=== PATIENT | female | born 1995 | race Caucasian/White ===

== ENCOUNTER 2016-12-04 22:11 | Emergency (ER) | payer BC ==
[~2016-12-04] VITALS: Ht 162.6 cm; Wt 74.1 kg
[2016-12-04 22:12] VITALS: TEMP 36.8; Ht 162.6 cm; Wt 74.1 kg
[2016-12-04] MEDS ORDERED: SODIUM CHLORIDE 0.9% 1000ML 1,000 ML IV ONE (23:15)
[2016-12-04 23:17] VITALS: O2SAT 97
[2016-12-04 23:26] LABS: BASO % 0.5 %; BASO ABS # 0.03 K/uL (0-0.2); COMPLETE YES; EOS % 1.6 %; IG% 0.2 %; LYMPH % 29.6 %; LYMPH ABS # 1.85 K/uL (1.2-3.4); MEAN CELL VOLUME 93.1 fL (80-100); MEAN CORPUSCULAR HEMOGLOBIN 32.9 pg (25-34); MEAN CORPUSCULAR HGB CONC 35.4 g/dl (32-36); MEAN PLATELET VOLUME 9.1 fL (7.4-10.4); MONO % 6.4 %; NEUT % 61.7 %; PLATELET COUNT 210 K/uL (130-400); RED BLOOD COUNT 4.19 M/uL (4.2-5.4); WHITE BLOOD COUNT 6.24 K/uL (4.8-10.8)
[2016-12-04 23:40] LABS: POINT OF CARE TROPONIN I < 0.030 ng/ml (0-0.045)
[2016-12-04 23:43] LABS: URINE APPEARANCE CLOUDY (CLEAR); URINE BILIRUBIN NEG (NEG); URINE COLOR YELLOW; URINE EPITHELIAL CELL AUTO >30 /lpf (0-5); URINE NITRITE NEG (NEG); URINE PH 6.5 (4.5-7.5); UROBILINOGEN NEG (NEG); ZZUR CULT IF INDIC CLEAN CATCH YES
[2016-12-04 23:50] LABS: MANUAL MICROSCOPIC REQUIRED? NO; REVIEW REQ? NO
[2016-12-04] MEDS ORDERED: PRENTAB26 PO (23:54)
[2016-12-04] MEDS ORDERED: DULO-24 PO (23:54)
[2016-12-04] MEDS ORDERED: CETI10TA84 PO (23:56)
[2016-12-04] MEDS ORDERED: BIOT10TA2 PO (23:56)
[2016-12-04] MEDS ORDERED: ALPR0.25 PO (23:58)
[2016-12-05 00:05] LABS: BUN/CREATININE RATIO 10.8 (10-20); CALCIUM 8.7 mg/dl (8.5-10.1); CREATININE 1.3 mg/dl (0.60-1.20)
[2016-12-05 00:06] LABS: BENZODIAZEPINE, URINE NEG (NEG); COCAINE,URINE NEG (NEG); PHENCYCLIDINE, URINE NEG (NEG)
[2016-12-05 00:09] LABS: POTASSIUM 3.6 mmol/L (3.5-5.1)
[2016-12-05 00:14] LABS: MAGNESIUM 1.9 mg/dl (1.8-2.4)
[2016-12-05 00:17] LABS: ALB/GLOB RATIO 1.2 (0.9-2); THYROID STIMULATING HORMONE 6.22 uIu/ml (0.300-4.500)
[2016-12-05 00:20] LABS: LYME DISEASE AB IGG NEG (NEG); LYME DISEASE AB IGM NEG (NEG)
[2016-12-05 02:10] VITALS: BP 104/59; PULSE 88; O2SAT 97
--- NOTE | 2016-12-05 03:22 | EMERGENCY ROOM VISIT NOTE ---
History First contact with patient: 23:07 Chief Complaint: CHEST PAIN Stated Complaint: CHEST PAIN,PALPATATIONS,SOB History of Present Illness The patient is a 21 year old female who presents to the Emergency Room with complaints of palpitations and chest pain that began tonight. The patient states that she was watching [place] of [place] with a friend, when she began having her symptoms. The patient states that she has had symptoms like this of different severities over the past 2-3 weeks. 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 She does follow with a link cutter for her symptoms, and states that she has had a normal outpatient stress test and Holter monitor this week. She states that her symptoms have been increasing in nature and frequency. She has been provided Xanax which she did take prior to arrival. This did not improve her symptoms. She isolates her pain primarily over the left side chest wall. There is no radiation of symptoms. She rates her discomfort a 7/10. She is unsure if she may be . Review of Systems More than 10 systems were reviewed and otherwise negative with the exception of history of present illness. Past Medical/Surgical History No chronic medical disease Family History No pertinent family history Social History Smoking Status: Never Smoker Housing Status: lives with family Current/Historical Medications Scheduled Biotin (Biotin), 50 MG PO DAILY Cetirizine (Zyrtec), 10 MG PO DAILY Duloxetine HCl (Cymbalta), 80 MG PO DAILY Multivit/Min/Iron/Fol Ac/Pren ( Vitamin), 1 TAB PO DAILY Scheduled PRN Alprazolam (Xanax), 0.25-0.52 MG PO TID PRN for Anxiety Allergies Coded Allergies: Sulfamethoxazole w/Trimethoprim (Verified Allergy, Intermediate, PALPITATIONS, 12/05/16) Amoxicillin (Verified Allergy, Mild, HIVES, 12/05/16) Ciprofloxacin (Verified Allergy, Mild, HIVES, 12/05/16) Citalopram (Verified Allergy, Mild, MOOD SWINGS, 12/05/16) Clavulanic Acid (Verified Allergy, Mild, HIVES, 12/05/16) Latex (Verified Allergy, Mild, HIVES, 12/05/16) Uncoded Allergies: MUCINEX (Allergy, Intermediate, PALPITATIONS, 12/05/16) CONTROL PATCH (Allergy, Mild, SKIN DISCOLORATION, 12/05/16) NUVA RING (Allergy, Mild, SWELLING, 12/05/16) Physical Exam Vital Signs Date Time Temp Pulse Resp B/P (MAP) Pulse Ox O2 Delivery O2 Flow Rate FiO2 12/05/16 02:10 88 16 104/59 97 12/05/16 01:28 84 16 114/64 98 Room Air 12/05/16 00:12 80 16 105/60 98 Room Air 12/04/16 23:17 97 Room Air 12/04/16 22:19 97 Room Air 12/04/16 22:12 36.8 96 18 139/96 97 Room Air Pain Rating (0-10): 0 Physical Exam VITALS: Vitals are noted on the nurse's note and reviewed by myself. Vital signs stable. GENERAL: Well-developed, well-nourished, white female, who is in no acute distress and resting comfortably. Patient is cooperative with the examination. HEAD: Normocephalic atraumatic. EARS: External ear normal. External auditory canals clear, tympanic membranes pearly poole without erythema or effusion bilaterally. EYES: Pupils equal round and reactive to light and accommodation. Conjunctivae without injection, sclerae without icterus. Extraocular movements intact. NOSE: Patent, turbinates without inflammation or discharge. MOUTH: Mucous membranes moist. Tonsils are not enlarged. Pharynx without erythema, blood, or exudate. Uvula midline. Airway patent. NECK: Supple without nuchal rigidity. No lymphadenopathy. No thyromegaly. Cervical spine is nontender. HEART: Regular rate and rhythm without murmurs gallops or rubs. LUNGS: Clear to auscultation bilaterally without wheezes, rales or rhonchi. No retractions or accessory muscle use. ABDOMEN: Positive normal bowel sounds x 4. Soft, nontender, without masses or organomegaly. No guarding or rebound tenderness. MUSCULOSKELETAL: No muscle atrophy, erythema, or edema noted. Full range of motion without joint tenderness in all extremities. Medical Decision & Procedures Laboratory Results 12/04/16 23:05 Red Blood Count 4.19, Mean Corpuscular Volume 93.1, Mean Corpuscular Hemoglobin 32.9, Mean Corpuscular Hemoglobin Concent 35.4, Mean Platelet Volume 9.1, Neutrophils (%) (Auto) 61.7, Lymphocytes (%) (Auto) 29.6, Monocytes (%) (Auto) 6.4, Eosinophils (%) (Auto) 1.6, Basophils (%) (Auto) 0.5, Neutrophils # (Auto) 3.85, Lymphocytes # (Auto) 1.85, Monocytes # (Auto) 0.40, Eosinophils # (Auto) 0.10, Basophils # (Auto) 0.03 12/04/16 23:05 Test 12/04/16 23:05 12/04/16 23:20 12/04/16 23:25 White Blood Count 6.24 K/uL (4.8-10.8) Red Blood Count 4.19 M/uL (4.2-5.4) Hemoglobin 13.8 g/dL (12.0-16.0) Hematocrit 39.0 % (37-47) Mean Corpuscular Volume 93.1 fL (80-100) Mean Corpuscular Hemoglobin 32.9 pg (25-34) Mean Corpuscular Hemoglobin Concent 35.4 g/dl (32-36) Platelet Count 210 K/uL (130-400) Mean Platelet Volume 9.1 fL (7.4-10.4) Neutrophils (%) (Auto) 61.7 % Lymphocytes (%) (Auto) 29.6 % Monocytes (%) (Auto) 6.4 % Eosinophils (%) (Auto) 1.6 % Basophils (%) (Auto) 0.5 % Neutrophils # (Auto) 3.85 K/uL (1.4-6.5) Lymphocytes # (Auto) 1.85 K/uL (1.2-3.4) Monocytes # (Auto) 0.40 K/uL (0.11-0.59) Eosinophils # (Auto) 0.10 K/uL (0-0.5) Basophils # (Auto) 0.03 K/uL (0-0.2) RDW Standard Deviation 40.1 fL (36.4-46.3) RDW Coefficient of Variation 11.8 % (11.5-14.5) Immature Granulocyte % (Auto) 0.2 % Immature Granulocyte # (Auto) 0.01 K/uL (0.00-0.02) Anion Gap 8.0 mmol/L (3-11) Est Creatinine Clear Calc Drug Dose 66.4 ml/min Estimated GFR () 67.0 Estimated GFR (Non- 57.8 BUN/Creatinine Ratio 10.8 (10-20) Calcium Level 8.7 mg/dl (8.5-10.1) Magnesium Level 1.9 mg/dl (1.8-2.4) Total Bilirubin 0.3 mg/dl (0.2-1) Aspartate Amino Transf (AST/SGOT) 14 U/L (15-37) Alanine Aminotransferase (ALT/SGPT) 26 U/L (12-78) Alkaline Phosphatase 73 U/L (45-117) Total Protein 7.7 gm/dl (6.4-8.2) Albumin 4.2 gm/dl (3.4-5.0) Globulin 3.5 gm/dl (2.5-4.0) Albumin/Globulin Ratio 1.2 (0.9-2) Lipase 212 U/L (73-393) Thyroid Stimulating Hormone (TSH) 6.220 uIu/ml (0.300-4.500) Free Thyroxine 0.98 ng/dl (0.80-1.60) Lyme Disease IgG Antibody NEG (NEG) Lyme Disease IgM Antibody NEG (NEG) Bedside D-Dimer 147 ng/mlFEU (0-450) Bedside Troponin I < 0.030 ng/ml (0-0.045) Urine Color YELLOW Urine Appearance CLOUDY (CLEAR) Urine pH 6.5 (4.5-7.5) Urine Specific Slemp 1.020 (1.000-1.030) Urine Protein NEG (NEG) Urine Glucose (UA) NEG (NEG) Urine Ketones TRACE (NEG) Urine Occult Blood NEG (NEG) Urine Nitrite NEG (NEG) Urine Bilirubin NEG (NEG) Urine Urobilinogen NEG (NEG) Urine Leukocyte Esterase NEG (NEG) Urine WBC (Auto) 1-5 /hpf (0-5) Urine RBC (Auto) 0-4 /hpf (0-4) Urine Hyaline Casts (Auto) 1-5 /lpf (0-5) Urine Epithelial Cells (Auto) >30 /lpf (0-5) Urine Bacteria (Auto) 2+ (NEG) Urine Opiates Screen NEG (NEG) Urine Methadone, Qualitative NEG (NEG) Urine Barbiturates NEG (NEG) Urine Phencyclidine (PCP) Level NEG (NEG) Ur Amphetamine/Methamphetamine NEG (NEG) MDMA (Ecstasy) Screen NEG (NEG) Urine Benzodiazepines Screen NEG (NEG) Urine Cocaine Metabolite NEG (NEG) Urine Marijuana (THC) NEG (NEG) Medications Administered Medications (Trade) Dose Ordered Sig/Sofi Route Start Time Stop Time Status Last Admin Dose Admin Sodium Chloride 1,000 ml @ 999 mls/hr Q1H1M ONCE IV 12/04/16 23:15 12/05/16 00:15 DC 12/04/16 23:45 999 MLS/HR ED Course Physical exam and history were performed. Nursing notes and EMR were reviewed. Patient appears to have chest pain symptoms and palpitations for the past few hours. Evidently the patient has had an extensive outpatient workup without findings through her link cutter. IV access was established and labs were obtained. The patient was hydrated with normal saline. EKG was performed and was normal sinus rhythm without acute ST elevation or ectopy. 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 The patient's blood work is as above and was reviewed. She does not have a significantly elevated white blood cell count, gross anemia, bandemia, or significant electrolyte imbalance. Lipase and transaminases are nondiagnostic. Troponin and d-dimer are both negative. Urine is without evidence of or infection. Her TSH is slightly elevated, however her T4 is normal. Patient was monitored for greater than 4 hours on the monitor and storage bin tender did not have dysrhythmic episode. Overall the patient appears stable for discharge home. She does not appear to have an acute cardiopulmonary finding as the cause of her symptoms. The patient appears to have extensive outpatient resources, and should continue to follow with cardiology and her primary care physician. The patient's symptoms could be related to stress or anxiety, and I did have this discussion with the patient. She was thoroughly invited back to the ER with any new, worsening, or concerning symptoms. She voiced understanding of this plan and rated her discomfort a 2/10 at the time of departure. The chart was completed utilizing [employer] Voice Recognition Software. Grammatical errors, random word insertions, pronoun errors, and incomplete sentences are an occasional consequence of this system due to software limitations, ambient noise, and hardware issues. Any formal questions or concerns about the content, text, or information contained within the body of this dictation should be directly addressed to the provider for clarification. . Medical Decision Differential diagnosis includes, but is not limited to: Myocardial infarction, dysrhythmia, pericarditis, pneumothorax, aortic aneurysm/dissection, DVT/PE, anxiety, GERD, PUD, electrolyte imbalance, thyroid disorder, pneumonia, bronchitis, pancreatitis, and others Impression Primary Impression: Non-cardiac chest pain Departure Information Dispostion Home / Self-Care Condition GOOD Referrals No Doctor, Assigned (PCP) Forms HOME CARE DOCUMENTATION FORM, IMPORTANT VISIT INFORMATION Patient Instructions My [facility] Additional Instructions You were seen and evaluated today on an emergency basis only. This is not a substitute for, or an effort to provide, complete comprehensive medical care. It is not possible to recognize and treat all injuries or illnesses in a single emergency department visit. For this reason it is recommended that you followup with your primary care physician and link cutter this week for ongoing care and evaluation. Drink plenty of fluids and remain well hydrated. You are welcome to return to the emergency department anytime with new, worsening, or concerning symptoms.
--- NOTE | 2016-12-05 07:15 | DIAGNOSTIC IMAGING REPORT ---
CHEST ONE VIEW PORTABLE CLINICAL HISTORY: Palpitations/sob COMPARISON STUDY: No previous studies for comparison. FINDINGS: The cardiac and mediastinal contours are normal. There is no evidence of focal pulmonary consolidation. There is no evidence of failure. No pleural effusions are visualized.[ IMPRESSION: No active disease in the chest. Electronically signed by: Mike Beckford M.D. 12/05/2016 7:14 AM Dictated Date/Time: 12/05/2016 7:14 AM
== END 2016-12-05 02:09 | disposition home or self-care (01) ==
LOC: EDUNIT# 22:11 → C.EDB 22:13 → C.EDA 12-05 02:09
DX: R07.9 Chest pain, unspecified (principal); Z79.899 Other long term (current) drug therapy; Z88.1 Allergy status to other antibiotic agents; Z88.2 Allergy status to sulfonamides; Z88.8 Allergy status to other drugs, medicaments and biological substances; Z91.040 Latex allergy status

== ENCOUNTER 2017-02-25 22:10 | Emergency (ER) | payer OTHER, BC ==
[~2017-02-25] VITALS: Ht 162.6 cm; Wt 75.5 kg
[~2017-02-25 22:10] MED LIST: ALPR0.25 PO; BIOT10TA2 PO; CETI10TA84 PO; DULO-24 PO; PRENTAB26 PO
[2017-02-25 22:19] VITALS: BP 116/82; PULSE 102; TEMP 36.8; O2SAT 97; Ht 162.6 cm; Wt 75.5 kg
--- NOTE | 2017-02-25 22:36 | EMERGENCY ROOM VISIT NOTE ---
ED Visit Note First contact with patient: 22:23 CHIEF COMPLAINT: Body Fluid exposure HPI: This 22 yo presents to the Emergency Department for evaluation of a body fluid exposure when she accidentally got blood in her mouth from changing a wound Hemovac. 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 The wound has already been cleansed. Bleeding is controlled. They deny numbness, tingling, or loss of motion. Source patient is known. History of the source patient is not known at this time. The patient works at [employer]. They have had the hepatitis B. vaccination, and titers are current. They believe their tetanus is up-to-date. Pain is 0/10. ALLERGIES: Amoxicillin, reviewed MEDICATIONS: Synthroid, reviewed PMH: Thyroid, anxiety, depression SOCIAL HISTORY: No drug use Physical Exam: VITALS: Nursing notes reviewed and vitals are stable. GENERAL: Pleasant female, in no acute distress, nondiaphoretic, well-developed well-nourished. SKIN: Capillary reflex less than 2 seconds. HEENT: Normocephalic. PERRLA. EOMI. Nares patent. Mucous membranes moist. Neck is supple without nuchal rigidity. HEART: Regular rate and rhythm without murmurs gallops or rubs. LUNGS: Clear to auscultation bilaterally without wheezes, rales or rhonchi. No retractions or accessory muscle use. MUSCULOSKELETAL: No gross musculoskeletal defects. NEURO: Patient was alert and oriented to person place and time. Normal sensation to light and sharp touch. No focal neurological deficits. ED COURSE: I examined the patient. Option of HIV, hepatitis C, and hepatitis B testing was discussed with the patient. The risks, benefits, purpose, and limitations of the tests were explained to the patient and all of their questions were answered. They elected to proceed. I did perform pretest counseling and the appropriate consent forms were signed. Patient was given information on prevention of exposure and transmission as well as hospital confidentiality. Blood exposure handout was provided. The patient's blood was drawn. Risks and benefits of HIV prophylaxis were discussed with the patient. The patient elected to not to take HIV prophylaxis at this time. They will follow-up with employee health. Wound care instructions were provided. The patient was discharged in stable condition. My charge nurse Joe, was notified and will contact the attending physician of the source patient for HIV baseline testing. Impression: Body fluid exposure Plan: Follow up with employee health for further evaluation, treatment, and test results. Current/Historical Medications Scheduled Biotin (Biotin), 50 MG PO DAILY Cetirizine (Zyrtec), 10 MG PO DAILY Duloxetine HCl (Cymbalta), 80 MG PO DAILY Multivit/Min/Iron/Fol Ac/Pren ( Vitamin), 1 TAB PO DAILY Scheduled PRN Alprazolam (Xanax), 0.25-0.52 MG PO TID PRN for Anxiety Allergies Coded Allergies: Sulfamethoxazole w/Trimethoprim (Verified Allergy, Intermediate, PALPITATIONS, 12/05/16) Amoxicillin (Verified Allergy, Mild, HIVES, 12/05/16) Ciprofloxacin (Verified Allergy, Mild, HIVES, 12/05/16) Citalopram (Verified Allergy, Mild, MOOD SWINGS, 12/05/16) Clavulanic Acid (Verified Allergy, Mild, HIVES, 12/05/16) Latex (Verified Allergy, Mild, HIVES, 12/05/16) Uncoded Allergies: MUCINEX (Allergy, Intermediate, PALPITATIONS, 12/05/16) CONTROL PATCH (Allergy, Mild, SKIN DISCOLORATION, 12/05/16) NUVA RING (Allergy, Mild, SWELLING, 12/05/16) Vital Signs Date Time Temp Pulse Resp B/P (MAP) Pulse Ox O2 Delivery O2 Flow Rate FiO2 02/25/17 22:19 36.8 102 16 116/82 97 Room Air Departure Information Referrals No Doctor, Assigned (PCP) Patient Instructions [facility]
[2017-02-25] MEDS ORDERED: LEVO25TA PO (22:58)
== END 2017-02-25 22:55 | disposition home or self-care (01) ==
LOC: C.EDB 22:11 → C.EDC 22:55
DX: Z77.21 Contact with and (suspected) exposure to potentially hazardous body fluids (principal); Y99.0 Civilian activity done for income or pay; E07.9 Disorder of thyroid, unspecified; F32.9 Major depressive disorder, single episode, unspecified; F41.9 Anxiety disorder, unspecified; Z79.899 Other long term (current) drug therapy

== ENCOUNTER → 2017-06-24 | Outpatient (CLI) | payer OTHER ==
[~2017-06-24] MED LIST changes: +LEVO25TA PO
== END | disposition home or self-care (01) ==
LOC: C.PAPS 09:49
PROVIDERS: ATTEND Physician Assistant
DX: Z12.4 Encounter for screening for malignant neoplasm of cervix (principal)

== ENCOUNTER → 2017-10-20 | Outpatient (CLI) | payer BC ==
[2017-10-20 16:36] LABS: HEMATOCRIT 40.7 % (37-47); HEMOGLOBIN 14.5 g/dL (12.0-16.0); MEAN CELL VOLUME 92.9 fL (80-100); MEAN CORPUSCULAR HEMOGLOBIN 33.1 pg (25-34); MEAN CORPUSCULAR HGB CONC 35.6 g/dl (32-36); MEAN PLATELET VOLUME 9.2 fL (7.4-10.4); PLATELET COUNT 263 K/uL (130-400); RED CELL DISTRIBUTION WIDTH CV 11.9 % (11.5-14.5); RED CELL DISTRIBUTION WIDTH SD 40.4 fL (36.4-46.3); WHITE BLOOD COUNT 5.67 K/uL (4.8-10.8)
[2017-10-20 17:03] LABS: PROLACTIN 13.32 ng/mL
[2017-10-20 17:04] LABS: FOLLICLE STIMULAT HORMONE 4.08 IU/L
== END | disposition home or self-care (01) ==
LOC: C.LAB1850 15:38
PROVIDERS: ATTEND Obstetrics & Gynecology
DX: N93.8 Other specified abnormal uterine and vaginal bleeding (principal)

== ENCOUNTER 2018-01-30 15:35 | Emergency (ER) | payer BC ==
[~2018-01-30] VITALS: Ht 162.6 cm; Wt 76.1 kg
[~2018-01-30 15:35] MED LIST changes: -LEVO25TA PO; -PRENTAB26 PO
[2018-01-30 15:43] VITALS: TEMP 36.8
[2018-01-30] MEDS ORDERED: SODIUM CHLORIDE 0.9% 1000ML 1,000 ML IV STA (17:07)
[2018-01-30] MEDS ORDERED: ACETAMINOPHEN IV 100 ML IV STA (17:07)
[2018-01-30 17:15] VITALS: O2SAT 99; Ht 162.6 cm; Wt 76.1 kg
--- NOTE | 2018-01-30 17:45 | EMERGENCY ROOM VISIT NOTE ---
ED Visit Note First contact with patient: 16:49 CHIEF COMPLAINT: Heavy vaginal bleeding HISTORY OF PRESENTING ILLNESS: This is a 22-year-old female who presents to the emergency department with complaint of heavy vaginal bleeding that started last night. She states that her period came a few days early, she started with spotting 2 days ago, then last night she soaked through a tampon and soaked her pants. She states she continued to have heavy bleeding and going through a pad and tampon every 1-2 hours as well as passing several golf ball sized clots. She states that she called her [facility] office and was told to go to the ED for evaluation. She has had increased abdominal cramping, but denies any severe abdominal pain or back pain. She denies any fevers or chills. She has had some associated lightheadedness and nausea, but denies passing out and denies vomiting. She does have a history of ovarian torsion a few years ago and states that she lost her right ovary and right fallopian tube. She is also had her gallbladder out. She denies any other abdominal surgeries. She is . She states that she and her fianc have been trying to get for the last year and a half, she is going to start fertility treatments next month, but states she has not started any of these yet and has not been on any hormonal control or therapy. Her last menstrual period was January 04. REVIEW OF SYSTEMS: A complete 10 point review of systems was reviewed with the patient with pertinent positives and negatives as per history of present illness. All else were negative. PAST MEDICAL HISTORY: Hypothyroidism. 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 SOCIAL HISTORY: Lives at home. She denies tobacco use. ALLERGIES: Reviewed in chart, see below. PHYSICAL EXAM: CONSTITUTIONAL: Pleasant and cooperative. No acute distress. No pallor. Mildly dehydrated, but otherwise well appearing and well nourished. HEENT: Normocephalic, atraumatic. Pupils equal, round and reactive to light, EOMI, normal conjunctiva bilaterally. TMs normal. Pharynx normal. Tacky mucous membranes. NECK: Supple, full active range of motion without discomfort. RESPIRATORY: Clear to auscultation bilaterally with no wheezing, crackles, rhonchi or stridor. Equal expansion bilaterally. CARDIOVASCULAR: Regular rate and rhythm with no murmurs, rubs or gallops. Normal peripheral perfusion. No edema. GASTROINTESTINAL: Mildly tender to palpation in the suprapubic region, abdomen is otherwise nontender. Soft, nondistended. No palpable masses or HSM. Bowel sounds present in all quadrants. No CVA tenderness bilaterally. PELVIC EXAM: VULVA: No ulcers, vesicles or atrophy. VAGINA: There is a small amount of dark blood in the vaginal vault, no foul odor, no abnormal discharge. CERVIX: Os is closed, pink, nontender, no cervical motion tenderness, no discharge. No active bleeding from the cervical os. UTERUS: Normal size, nontender. ADNEXA: No masses or tenderness. A nurse was present as a dispatcher service chief during the examination. MUSCULOSKELETAL: Full range of motion of all joints without discomfort. INTEGUMENTARY: No rash or other significant dermatologic conditions noted. NEUROLOGIC: Alert and oriented X 4 with normal affect. Normal strength and sensation in all 4 extremities. No focal neurologic deficits noted. Normal speech. Normal gait observed. ED COURSE AND MEDICAL DECISION MAKING: CC: Patient presenting with complaint of heavy vaginal bleeding DIFFERENTIAL DIAGNOSIS: Includes, but not limited to dysfunctional uterine bleeding, threatened miscarriage, ectopic , ovarian cyst, anemia, among others. INTERPRETATION OF LABS: No leukocytosis, no anemia, normal platelets, no significant electrolyte abnormalities, normal renal function, normal liver enzymes. Coagulation factors within normal limits. UA shows small blood consistent with vaginal bleeding, no infection. Negative urine . MEDICATION RECONCILIATION: I attest that I have personally reviewed the patient 's current medication list. INITIAL VITAL SIGNS REVIEW: I reviewed the patient's initial vital signs and interpret them as follows: T: Afebrile; BP: Hypertensive; HR: Within normal limits; RR: Within normal limits; Pulse Ox: Within normal limits on room air. Blood pressure screening: The patient was found to have an elevated blood pressure, which was felt to be situational. SUMMARY: Patient was evaluated at bedside, history and physical exam performed. Patient is alert and oriented, in no acute distress, resting calmly in stretcher. She does not appear pale or significantly dehydrated. Orders were placed at bedside for labs, UA and urine , IV fluids for hydration as a precaution. Patient discussed with Dr. Trevino, who agrees with my assessment and plan. Labs reviewed as above, she is not and she is not anemic. I do not feel any ultrasound imaging is necessary at this time. Pelvic exam as above, no active hemorrhaging and the cervical os is closed. Patient reassessed multiple times throughout ED stay, she has remained stable, and has not had any further heavy gushes of vaginal bleeding while in the ED. Patient was updated on all results and plan for discharge, she was encouraged to follow closely with her van loader regarding her abnormal vaginal bleeding. Patient was also given strict return precautions should her symptoms worsen, she verbalized understanding. Patient was discharged home in stable condition and ambulatory. Current/Historical Medications Scheduled Levothyroxine Sodium (Synthroid), 25 MCG PO DAILY Multivit/Min/Iron/Fol Ac/Pren ( Vitamin), 1 TAB PO DAILY Allergies Coded Allergies: Ketorolac Tromethamine (Verified Allergy, Intermediate, Heartburn, 01/30/18 ) Sulfamethoxazole w/Trimethoprim (Verified Allergy, Intermediate, PALPITATIONS, 02/25/17) Amoxicillin (Verified Allergy, Mild, HIVES, 02/25/17) Ciprofloxacin (Verified Allergy, Mild, HIVES, 02/25/17) Citalopram (Verified Allergy, Mild, MOOD SWINGS, 02/25/17) Clavulanic Acid (Verified Allergy, Mild, HIVES, 02/25/17) Latex (Verified Allergy, Mild, HIVES, 02/25/17) Uncoded Allergies: MUCINEX (Allergy, Intermediate, PALPITATIONS, 12/05/16) CONTROL PATCH (Allergy, Mild, SKIN DISCOLORATION, 12/05/16) NUVA RING (Allergy, Mild, SWELLING, 12/05/16) Vital Signs Date Time Temp Pulse Resp B/P (MAP) Pulse Ox O2 Delivery O2 Flow Rate FiO2 01/30/18 19:38 82 18 121/78 98 01/30/18 19:03 78 01/30/18 18:25 72 16 117/82 99 Room Air 01/30/18 17:15 80 16 132/88 99 Room Air 01/30/18 17:15 99 Room Air 01/30/18 15:43 36.8 80 18 146/93 99 Room Air Laboratory Results 01/30/18 17:45 Red Blood Count 4.31, Mean Corpuscular Volume 92.1, Mean Corpuscular Hemoglobin 32.3, Mean Corpuscular Hemoglobin Concent 35.0, Mean Platelet Volume 9.8, Neutrophils (%) (Auto) 68.5, Lymphocytes (%) (Auto) 24.7, Monocytes (%) (Auto) 4.9, Eosinophils (%) (Auto) 1.3, Basophils (%) (Auto) 0.4, Neutrophils # (Auto) 3.75, Lymphocytes # (Auto) 1.35, Monocytes # (Auto) 0.27, Eosinophils # (Auto) 0.07, Basophils # (Auto) 0.02 01/30/18 17:45 Test 01/30/18 17:00 01/30/18 17:45 Urine Color YELLOW Urine Appearance CLEAR (CLEAR) Urine pH 5.0 (4.5-7.5) Urine Specific [place] 1.009 (1.000-1.030) Urine Protein NEG (NEG) Urine Glucose (UA) NEG (NEG) Urine Ketones NEG (NEG) Urine Occult Blood TRACE (NEG) Urine Nitrite NEG (NEG) Urine Bilirubin NEG (NEG) Urine Urobilinogen NEG (NEG) Urine Leukocyte Esterase NEG (NEG) Urine WBC (Auto) 1-5 /hpf (0-5) Urine RBC (Auto) 0-4 /hpf (0-4) Urine Hyaline Casts (Auto) 0 /lpf (0-5) Urine Epithelial Cells (Auto) 5-10 /lpf (0-5) Urine Bacteria (Auto) NEG (NEG) Urine Test NEG (NEG) White Blood Count 5.47 K/uL (4.8-10.8) Red Blood Count 4.31 M/uL (4.2-5.4) Hemoglobin 13.9 g/dL (12.0-16.0) Hematocrit 39.7 % (37-47) Mean Corpuscular Volume 92.1 fL (80-100) Mean Corpuscular Hemoglobin 32.3 pg (25-34) Mean Corpuscular Hemoglobin Concent 35.0 g/dl (32-36) Platelet Count 204 K/uL (130-400) Mean Platelet Volume 9.8 fL (7.4-10.4) Neutrophils (%) (Auto) 68.5 % Lymphocytes (%) (Auto) 24.7 % Monocytes (%) (Auto) 4.9 % Eosinophils (%) (Auto) 1.3 % Basophils (%) (Auto) 0.4 % Neutrophils # (Auto) 3.75 K/uL (1.4-6.5) Lymphocytes # (Auto) 1.35 K/uL (1.2-3.4) Monocytes # (Auto) 0.27 K/uL (0.11-0.59) Eosinophils # (Auto) 0.07 K/uL (0-0.5) Basophils # (Auto) 0.02 K/uL (0-0.2) RDW Standard Deviation 39.6 fL (36.4-46.3) RDW Coefficient of Variation 11.7 % (11.5-14.5) Immature Granulocyte % (Auto) 0.2 % Immature Granulocyte # (Auto) 0.01 K/uL (0.00-0.02) Prothrombin Time 9.6 SECONDS (9.0-12.0) Prothromb Time International Ratio 0.9 (0.9-1.1) Activated Partial Thromboplast Time 24.2 SECONDS (21.0-31.0) Partial Thromboplastin Ratio 0.9 Anion Gap 7.0 mmol/L (3-11) Est Creatinine Clear Calc Drug Dose 115.5 ml/min Estimated GFR () 129.3 Estimated GFR (Non- 111.6 BUN/Creatinine Ratio 14.6 (10-20) Calcium Level 9.0 mg/dl (8.5-10.1) Total Bilirubin 0.3 mg/dl (0.2-1) Aspartate Amino Transf (AST/SGOT) 22 U/L (15-37) Alanine Aminotransferase (ALT/SGPT) 25 U/L (12-78) Alkaline Phosphatase 81 U/L (45-117) Total Protein 7.4 gm/dl (6.4-8.2) Albumin 4.4 gm/dl (3.4-5.0) Globulin 3.0 gm/dl (2.5-4.0) Albumin/Globulin Ratio 1.5 (0.9-2) Medications Administered Medications (Trade) Dose Ordered Sig/Sofi Route Start Time Stop Time Status Last Admin Dose Admin Sodium Chloride 1,000 ml @ 999 mls/hr Q1H1M STAT IV 01/30/18 17:07 01/30/18 18:07 DC 01/30/18 17:07 999 MLS/HR Acetaminophen 100 ml @ 400 mls/hr NOW STAT IV 01/30/18 17:07 01/30/18 17:21 DC 01/30/18 18:04 400 MLS/HR Ibuprofen (Motrin Tab) 600 mg NOW STAT PO 01/30/18 18:13 01/30/18 18:14 DC 01/30/18 18:24 600 MG Departure Information Impression Primary Impression: Abnormal vaginal bleeding Dispostion Home / Self-Care Condition GOOD Referrals Esther Gómez D.O. (PCP) Vivi Archer M.D. Patient Instructions ED Bleed Irregular Vaginal, My [facility] Additional Instructions You have been evaluated and treated in the emergency department today for vaginal bleeding. Laboratory results today have ruled out any emergent causes for your symptoms which would warrant admission. You may take regular strength (200 mg/tab) Advil (ibuprofen) 3 tabs every 6-8 hours as needed for abdominal cramps. Do not exceed a dose of 2400 mg per day. This may also help to slow your bleeding. Drink plenty of fluids to stay well hydrated. Please follow-up with your [facility] office -- call for an appointment. Please return to the ER for worsening symptoms, including severe abdominal or back pain, persistent heavy bleeding (soaking through 2 or more pads/tampons per hour or passing clots the size of your fist), fever/chills, severe dizziness or passing out, or any other concerns. Work Instructions Return To Work: 2 days
[2018-01-30] MEDS ORDERED: IBUPROFEN 600 MG TAB PO STA (18:13)
[2018-01-30 18:15] LABS: BASO % 0.4 %; BASO ABS # 0.02 K/uL (0-0.2); EOS % 1.3 %; EOS ABS # 0.07 K/uL (0-0.5); HEMATOCRIT 39.7 % (37-47); HEMOGLOBIN 13.9 g/dL (12.0-16.0); IG# 0.01 K/uL (0.00-0.02); LYMPH % 24.7 %; LYMPH ABS # 1.35 K/uL (1.2-3.4); MEAN CELL VOLUME 92.1 fL (80-100); MEAN CORPUSCULAR HEMOGLOBIN 32.3 pg (25-34); MEAN PLATELET VOLUME 9.8 fL (7.4-10.4); MONO % 4.9 %; MONO ABS # 0.27 K/uL (0.11-0.59); NEUT % 68.5 %; NEUT ABS # 3.75 K/uL (1.4-6.5); PLATELET COUNT 204 K/uL (130-400); RED CELL DISTRIBUTION WIDTH CV 11.7 % (11.5-14.5); RED CELL DISTRIBUTION WIDTH SD 39.6 fL (36.4-46.3); WHITE BLOOD COUNT 5.47 K/uL (4.8-10.8)
[2018-01-30 18:33] LABS: INR 0.9 (0.9-1.1); PTT PATIENT 24.2 SECONDS (21.0-31.0)
[2018-01-30 18:43] LABS: ALBUMIN 4.4 gm/dl (3.4-5.0); CREATININE 0.75 mg/dl (0.60-1.20); POTASSIUM 3.8 mmol/L (3.5-5.1); TOTAL PROTEIN 7.4 gm/dl (6.4-8.2)
[2018-01-30 19:38] VITALS: BP 121/78; PULSE 82; O2SAT 98
[2018-01-30] MEDS ORDERED: LEVO25TA PO (22:58)
[2018-01-30] MEDS ORDERED: PRENTAB26 PO (23:54)
== END 2018-01-30 19:38 | disposition home or self-care (01) ==
LOC: C.EDB 15:37 → C.EDC 19:38
DX: N93.9 Abnormal uterine and vaginal bleeding, unspecified (principal); E03.9 Hypothyroidism, unspecified; Z88.2 Allergy status to sulfonamides; Z88.8 Allergy status to other drugs, medicaments and biological substances; Z91.040 Latex allergy status